=== PATIENT | female | born 1990 | race Caucasian/White ===

== ENCOUNTER 2022-08-03 09:34 | Emergency (ER) | payer MEDICAID, SELFPAY ==
[2022-08-03 09:35] VITALS: BP 140/105; PULSE 109; RESP 18; TEMP 36.2; O2SAT 99; BMI 32.6
--- NOTE | 2022-08-03 10:26 | US_ITS ---
We are attempting to reach an attending provider to discuss findings. An addendum with communication details will be sent when the communication is complete. STUDY: ULTRASOUND TRANSVAGINAL CLINICAL: Female, 31 years old. post bleeding TECHNIQUE: Transvaginal COMPARISON: None. FINDINGS: Normal uterine size measuring 10.0 x 4.8 x 7.0 cm in maximal craniocaudal dimension. There are no myometrial masses. Normal endometrial thickness measuring 20 mm. The endometrium is heterogeneous and retained products of conception or endometritis cannot be excluded.. Normal uterine cervix. Normal right ovary, measuring 2.7 x 2.1 x 1.9 cm. There are multiple follicles without a dominant cyst. Normal left ovary, measuring 2.5 x 2.7 x 1.5 cm. There are multiple follicles without a dominant cyst. There is no free fluid in the pelvis. Polycystic ovary disease: No. US/Transvaginal Non- IMPRESSION: Thickened heterogeneous endometrium and retained products of conception or endometritis cannot be excluded. Electronically Signed: Brayan Mcgraw MD at 12:44 EDT ,
--- NOTE | 2022-08-03 10:27 | EDS_ITS ---
HPI History of Present Illness Chief Complaint: General Illness Informant: patient Onset/Context/Timing Onset: Weeks Context: Gradual Onset Timing: Intermittent Current Severity: Mild Maximum Severity: Mild Narrative Narrative: 31-year-old female G2, P2 Ab0 status post about 8 weeks ago at a hospital in [facility]. Patient is about 8 weeks . States she has had some intermittent bleeding. She has followed up with her HEAD CONTROL CLERK a Dr. De La Cruz. There was an ultrasound done recently which may have shown retained products of conception and she wants a second opinion on it. During she had gestational diabetes and states her blood sugars have been running low now. She denies vomiting, diarrhea or fever. No dysuria. States that the bleeding is mild. Its only intermittent. Prior similar symptoms: Yes Recent Illness/Hospitalization: Yes PFSH PFSH Medical History Gestational [-induced] hypertension without significant proteinuria, second trimester Allergy/AdvReac Type Severity Reaction Status Date / Time No Known Allergies Allergy Verified 08/03/22 09:57 Surgical History H/O wisdom tooth extraction H/O: History of hip surgery Hx of tonsillectomy Social History Smoking Status: Never smoker ROS ROS ED ROS Narrative Vaginal bleeding . Review of Systems ROS Unobtainable: Denies due to encephalopathy Constitutional Constitutional ED: Denies chills or fever(s) Eyes Eyes: Denies blurry vision ENT ENT ED: Denies ear pain Cardiovascular Cardiovascular: Denies chest pain Respiratory/Chest Respiratory/Chest: Denies cough or dyspnea Gastrointestinal Gastrointestinal: Denies abdominal pain or constipation Genitourinary Genitourinary ED: Denies dysuria or hematuria Integumentary Denies abscess Neurologic Neurologic: Denies headache(s) Psychiatric Psychiatric: Denies anxiety or depression Endocrine Endocrinology: Denies cold intolerance Hematologic/Lymphatic Hematologic/Lymphatic: Reports none Allergic/Immunologic Allergic/Immunologic ED: Denies mouth swelling or tongue swelling EXAM Physical Exam Narrative Exam Narrative: Well-appearing 31-year-old female. Vital signs are stable afebrile. Blood pressure is elevated at 140/105. She is anxious. She is currently breast- feeding. H EENT exam unremarkable. Neck nontender JVD. Lungs clear to auscultation. Heart regular rhythm rate about 105 no murmur. Abdomen soft, nontender, nondistended normal bowel sounds without peritoneal signs. She has a very well-healed incision which is horizontal. It is dry and clean. There is no separation. No signs of infection. Moving all 4 extremities. Nontender no edema. Neurologically she is awake and alert without any focal motor deficits. Const Vital Signs: 08/03/22 09:35 08/03/22 12:20 Temperature 97.1 F L Temperature Source Temporal Pulse Rate 109 H 100 Respiratory Rate 18 18 Blood Pressure 140/105 H 134/78 H Blood Pressure Mean 116 96 Pulse Ox 99 97 Oxygen Delivery Method Room Air Room Air Positive well nourished and well developed; Negative for cachectic, contractures or unkempt General Appearance ED: well developed and NAD; Negative for unkempt, cachectic, contractures, cyanotic, diaphoretic or pallor Nutritional Appearance: Negative for cachectic HEENT Reports moist mucous membranes Negative for trauma or tenderness Eyes PERRL and EOMs intact bilaterally General Eye ED: Negative for pale conjunctiva or scleral icterus Neck no lymphadenopathy, supple and no JVD General: Negative for tenderness Chest Wall inspection of chest normal and palpation of chest normal Chest: Negative for other Resp normal respiratory effort and clear to auscultation bilaterally Effort and Inspection: Negative for retractions Auscultation: Negative for rales, rhonchi or wheezes Cardio regular rhythm, S1 normal heart sound, S2 normal heart sound and no murmurs; Negative for regular rate Rate: tachycardic GI normal to inspection, nondistended, normoactive bowel sounds, non-tender, non- distended and no masses Inspection: Negative for abdominal distention Auscultation: normoactive bowel sounds Palpation: soft; Negative for tender or guarding Back/Spine no CVA tenderness General Back: Negative for CVA tenderness Cervical Spine: Negative for cervical spine tenderness Thoracic Spine / Upper Back: Negative for thoracic spinal tenderness Lumbar Spine / Lower Back: Negative for lumbar spinal tenderness Extremity normal to inspection General Extremety ED: Negative for edema or tenderness General Extremity: Negative for edema Neuro CN's II-XII intact bilaterally Sensorium / Orientation: alert; Negative for orientation impaired, lethargic or stuporous Motor Exam: strength 5/5 throughout Psych mental status grossly normal Appearance: Negative for unkempt Attitude: No agitated Mood & Affect: Negative for depressed, anxious or tearful Skin no rashes or lesions noted, no wounds and skin turgor normal General Skin Exam: elasticity normal; Negative for jaundice or pallor Lesions: No lesion noted Rashes: No rashes noted Trauma: Negative for abrasion Wounds: Negative for wounds noted MDM MDM MDM Narrative Medical decision making narrative: 31-year-old female status post Wilkins about 8 weeks ago. Has had some mild intermittent vaginal bleeding. Has had other symptoms. During the she did have episodes of gestational diabetes. Intermittent elevated blood pressure. Ultrasound and labs are being obtained. Exam is benign. Repeat exam patient is doing well. I did speak to our HEAD CONTROL CLERK on-call Dr. Cruz. She is never taken care of the patient in the past but we discussed the patient's recent history of a 8 weeks ago. Her ultrasound and labs. At this time we will hold off on any additional treatment. I spoke to the radiologist and he said may be endometritis he did not think this was retained products. Patient will follow-up with either her HEAD CONTROL CLERK and the [facility] or with Dr. Cruz this coming week. Return if worse. She does not look infectious. She does not have a fever look toxic we do not feel that she needs antibiotics at this time. History & Record Review Discussion w/independent historian: Patient and Family Lab Data Attestation: I reviewed the patient's lab results. Lab results narrative: CBC shows a mildly elevated white count 13.7. H&H at 13.7 and 42. Platelets 342. She is not anemic. Electrolytes unremarkable gap of 8 normal BUN and creatinine. Glucose is 97. Labs: Laboratory Results - last 24 hr 08/03/22 08/03/22 11:30 11:30 WBC 13.7 H RBC 5.03 Hgb 13.7 Hct 42.2 MCV 83.9 MCH 27.2 MCHC 32.5 RDW Std Deviation 42.2 RDW Coeff of [place] 13.7 Plt Count 342 MPV 9.6 Immature Gran % (Auto) 0.400 Neut % (Auto) 77.2 H Lymph % (Auto) 16.2 L [place] % (Auto) 5.0 Eos % (Auto) 0.5 Baso % (Auto) 0.7 Absolute Neuts (auto) 10.6 H Absolute Lymphs (auto) 2.21 Nucleated RBC % 0 Sodium 139 Potassium 4.2 Chloride 107 Carbon Dioxide 24.0 Anion Gap 8 BUN 15 Creatinine 0.83 Estim Creat Clear Calc 99.98 Est GFR (MDRD) Af Amer 103 Est GFR (MDRD) Non-Af 85 BUN/Creatinine Ratio 18.0 Glucose 97 Calcium 9.6 Radiography Diagnostic Testing: Clinical Impression(s) from Imaging Studies Transvaginal US 08/03/22 10:26 IMPRESSION: Thickened heterogeneous endometrium and retained products of conception or endometritis cannot be excluded. Electronically Signed: Brayan Mcgraw MD at 12:44 EDT Reading Location ID and State: [address] [place] [address] Tel , Service support , ADDENDUM: 08/03/22 1259 IMPRESSION: Thickened heterogeneous endometrium and retained products of conception or endometritis cannot be excluded. N.B. : The above Results were Read Back by Brayan Mcgraw MD to Obinna Carroll RN, and understanding confirmed on 08/03/2022 12:52:55 (ET). Electronically Signed: Brayan Mcgraw MD at 12:44 EDT Reading Location ID and State: [id number] / [place] Tel , Service support , Discharge Plan Triage Chief Complaint: General Illness ED Provider: Obinna Carroll Dx/Rx/DC Orders Clinical Impression: Vaginal bleeding Primary Care Provider: Care Physician,No Primary Referrals: Dimple Agarwal MD [Med Staff - Active Staff] - As soon as possible Care Physician,No Primary [Primary Care Provider] - Activity Restrictions/Additional Instructions: Call and follow-up with your HEAD CONTROL CLERK. I spoke to our radiologist he did not think this was retained products of conception. Possibly an early infection. Also discussed all this along with your history and exam and labs with our HEAD CONTROL CLERK and we do not think you need to be started on any antibiotics at this time. She encouraged to follow-up with your OB since you have history with them and they know your care but she would be glad to see you next week if you prefer to follow-up here. Tylenol and Motrin for pain. Return if feeling a lot worse. Disposition Disposition: Home, Self Care
[2022-08-03 11:52] LABS: Anion Gap 8 (5-15); BUN 15 mg/dL (7-18); Calcium,Total 9.6 mg/dL (8.5-10.1); Chloride 107 mmol/L (98-107); Creatinine, Serum 0.83 mg/dL (0.55-1.02); EST Glomerular Filtration Rate 85 mL/min (>60); Est Glom Filt Rate - Afr Amer 103 mL/min (>60); Estimated Creatinine Clearance 99.98 ml/min; Glucose 97 mg/dL (74-106); Potassium 4.2 mmol/L (3.5-5.1); Sodium Level 139 mmol/L (136-145)
[2022-08-03 11:54] LABS: Absolute Lymphocyte Count 2.21 X10^3/uL (0.83-4.51); Absolute Neutrophil Count 10.6 X10^3/uL (2.0-7.7); Basophil# 0.09 X10^3/uL; Basophil% 0.7 % (0-1); Eosinophil# 0.07 X10^3/uL; Eosinophils% 0.5 % (0-5); Hematocrit 42.2 % (37-47); Hemoglobin 13.7 g/dL (12.0-15.0); Lymphocyte # 2.21 X10^3/ul (0.83-4.51); Lymphocyte % 16.2 % (19-41); Mean Corp Hgb Conc 32.5 g/dL (32-36); Mean Corpuscular Hgb 27.2 pg (27.0-32.0); Mean Corpuscular Volume 83.9 fL (81-99); Mean Platelet Vol. 9.6 fl (6.2-12.0); Monocyte# 0.68 X10^3/uL; NRBC Flagged by Analyzer 0 % (0-5); Neutrophil # 10.57 X10^3/uL (2.7-7.7); Neutrophil % 77.2 % (47-70); Platelet Count 342 K/mm3 (150-450); RBC Distribution Width CV 13.7 % (11.6-14.6); RBC Distribution Width SD 42.2 fl (35.1-43.9); Red Blood Count 5.03 M/mm3 (4.2-5.4); White Blood Count 13.7 K/mm3 (4.4-11.0)
[2022-08-03 12:20] VITALS: BP 134/78; PULSE 100; RESP 18; O2SAT 97
--- NOTE | 2022-08-03 12:25 | ED.RN ---
THIS RN CALLED OB ON BEHALF OF PT. PT BREAST FEEDS BABY, BUT IS REQUESTING BREAST PUMP. TO COME SEE PT AND BRING PUMP.
[2022-08-03 13:28] VITALS: BP 110/91; PULSE 95; RESP 18; O2SAT 95
--- NOTE | 2022-08-03 17:36 | NURSING ---
This RN took single pump set up up to patient in ED. Patient educated on pump set up and pump set up at bedside by this RN. Instructed to pump for 15 minutes each breast every 3 hours that she would not be bringing infant to breast. Pumping initiated with this RN at bedside. Nipple noted to fit into flange appropriately. Milk visualized in bottle and patient denies pain or discomfort. Lanolin cream provided. Patient also instructed on technique for hand expression. Demonstration provided. patient verbalizes understanding and denies having other questions or needs at this time.
== END 2022-08-03 13:29 | disposition home or self-care (01) ==
PROVIDERS: Emergency Provider Emergency Medicine; Visit Provider Emergency Medicine
DX: N93.9 Abnormal uterine and vaginal bleeding, unspecified (principal)
CPT/HCPCS: 76830; 80048; 85025; 99282